=== PATIENT | female | born 1960 ===

== ENCOUNTER 2022-06-24 17:27 | Emergency (ER) | payer MEDICARE, BC ==
[2022-06-24] MEDS ORDERED: Sodium Chloride 0.9% 10 ML Syringe FLUSH PRN (18:20)
[2022-06-24] MEDS ORDERED: Sodium Chloride 0.9% 1,000 ML IV STA (18:20)
[2022-06-24] MEDS ORDERED: Sodium Chloride 0.9% 500 ML IV STA (18:22)
== END 2022-06-24 22:23 | disposition home or self-care (01) ==
LOC: JD.ED 17:27
DX: J40 Bronchitis, not specified as acute or chronic (principal); I12.9 Hypertensive chronic kidney disease with stage 1 through stage 4 chronic kidney disease, or unspecified chronic kidney disease; N18.4 Chronic kidney disease, stage 4 (severe); N17.9 Acute kidney failure, unspecified; D63.1 Anemia in chronic kidney disease; Z88.0 Allergy status to penicillin; Z79.899 Other long term (current) drug therapy
CPT/HCPCS: 36415; 71046; 80053; 85014; 85018; 85025; 86140; 96360; 99285; J3490; J7030